=== PATIENT | female | born 1990 | race African-American/Black ===

== ENCOUNTER 2019-06-07 05:03 | Inpatient (IN) ==
--- NOTE | 2019-06-05 10:30 | HISTORY AND PHYSICAL ---
HISTORY OF PRESENT ILLNESS: The patient is a 29-year-old black female, G3, P2, at 39 and 1/7 weeks with a history of prior section x1, scheduled for repeat section. The EDC is 06/13/2019 by a 1st trimester ultrasound. The patient has also expressed a desire for permanent sterilization. care significant also for rubella status nonimmune. PAST MEDICAL HISTORY: Significant for anxiety. PAST SURGICAL HISTORY: Significant for section x1, as well as laparoscopy for a cyst on her right ovary. PAST OBSTETRICAL HISTORY: G3, P2. Spontaneous vaginal delivery x1, section x1. GYNECOLOGICAL HISTORY: Menarche at age 17. REVIEW OF SYSTEMS: Significant for asthma, presently not on medication. FAMILY HISTORY: High blood pressure and diabetes mellitus. SOCIAL HISTORY: Tobacco use, none. Alcohol use, none. MEDICATIONS: vitamins. Inhaler as needed. ALLERGIES: No known drug allergies. PHYSICAL EXAMINATION: VITAL SIGNS: Height 5 feet 6-1/2 inches, weight 282 pounds. Blood pressure 122/81, respirations 20, pulse of 82, heart rate 130s. HEENT: Pupils equal, round, reactive to light accommodation. Extraocular movements intact. Oropharynx clear. NECK: Supple. No thyromegaly. LUNGS: Clear to auscultation. HEART: Regular rate and rhythm. ABDOMEN: Gravid, nontender. EXTREMITIES: Mild lower extremity edema. DTRs 2+ bilaterally. ASSESSMENT AND PLAN: A 29-year-old G3, P2, at 39 and 1/7 weeks for repeat section and tubal ligation. Patient counseled about the risks of surgery including bleeding, infection, bowel or bladder injury. Patient counseled about the permanency of the tubal ligation, failure rate of 2 to 01/1000, as well as the availability of reversible alternatives such as IUD, control pills, patches, etc. Patient scheduled for repeat section on 06/07/2019. cc: Cortez Snell III, MD
[2019-06-07] MEDS ORDERED: PEPCID PO ONE (05:06)
[2019-06-07] MEDS ORDERED: REGLAN PO ONE (05:06)
[2019-06-07] MEDS ORDERED: LR 500 ML IV ONE (05:06)
[2019-06-07] MEDS ORDERED: CLINDAMYCIN 900 MG/D5W 900 MG/50 ML IVPB IV ONE (05:08)
[2019-06-07] MEDS ORDERED: BICITRA PO ONE (05:28)
[2019-06-07] MEDS: LR 1,000 ML IV SCH ×2 (05:40→06:26)
[2019-06-07 05:59] LABS: BASO# 0.01 X1000 (0.0-0.2); BASO% 0.1 % (0.0-0.8); EOS# 0.02 X1000 (0.0-0.7); EOS% 0.3 % (0.0-10.0); HEMATOCRIT 35.4 % (37.0-47.0); HEMOGLOBIN 11.7 g/dL (12.0-16.0); IMM GRAN# 0.01 X1000 (0.0-0.04); IMM GRAN% 0.1 % (0.0-0.5); LYMPH# 2.34 X1000 (1.2-3.4); MCH 26.8 PG (27-31); MCHC 33.1 g/dL (33-37); MCV 81.2 FL (81-99); MONO# 0.55 X1000 (0.11-0.59); MPV 10.6 FL (7.4-10.4); NEUT# 4.88 X1000 (1.4-6.5); NEUT% 62.5 % (42.2-75.2); PLT 261 X1000 (130-400); RBC 4.36 XMIL (4.2-5.4); RDW 14.8 % (11.5-14.5); WBC 7.81 X1000 (4.8-10.8)
[2019-06-07 06:27] LABS: URINE SOURCE VOIDED
[2019-06-07 06:33] LABS: BILIRUBIN URINE NEGATIVE (NEGATIVE); BLOOD URINE 1+ (NEGATIVE); CLARITY CLEAR (CLEAR); COLOR YELLOW; GLUCOSE URINE NEGATIVE (NEGATIVE); KETONE URINE NEGATIVE (NEGATIVE); LEUKOCYTES URINE 2+ (NEGATIVE); NITRITE URINE NEGATIVE (NEGATIVE); PROTEIN URINE NEGATIVE (NEGATIVE); SP GRAVITY URINE 1.005; UROBILINOGEN URINE NORMAL
[2019-06-07 06:39] LABS: UR AMPHETAMINES QUAL NONE DETECTED (NONE DETECT); UR BARBITUATES QUAL NONE DETECTED (NONE DETECT); UR BENZODIAZEPIN QUAL NONE DETECTED (NONE DETECT); UR CANNABINOIDS QUAL NONE DETECTED (NONE DETECT); UR COCAINE QUAL NONE DETECTED (NONE DETECT); UR METHADONE QUAL NONE DETECTED (NONE DETECT); UR METHAMPHETAMINE QUAL NONE DETECTED (NONE DETECT); UR OPIATES QUAL NONE DETECTED (NONE DETECT); UR OXYCODONE QUAL NONE DETECTED (NONE DETECT); UR PCP QUAL NONE DETECTED (NONE DETECT); UR PROPOXYPHENE QUAL NONE DETECTED (NONE DETECT); UR TCA QUAL NONE DETECTED (NONE DETECT)
[2019-06-07] MEDS ORDERED: EPHEDRINE ONE (06:56)
[2019-06-07] MEDS ORDERED: FENTANYL ONE ×2 (06:56→07:40)
[2019-06-07] MEDS ORDERED: PITOCIN ONE (06:56)
[2019-06-07] MEDS ORDERED: DIPRIVAN 1% ONE (07:23)
[2019-06-07] MEDS ORDERED: QUELICIN (DOSE) ONE (07:42)
[2019-06-07] MEDS ORDERED: VENTOLIN HFA ONE (07:45)
[2019-06-07] MEDS ORDERED: TORADOL ONE (07:47)
[2019-06-07] MEDS ORDERED: PHENERGAN IM PRN (08:36)
[2019-06-07] MEDS ORDERED: BOOSTRIX VACCINE IM ONE (08:36)
[2019-06-07] MEDS ORDERED: MYLICON PO PRN (08:36)
[2019-06-07] MEDS ORDERED: ATARAX PO PRN (08:36)
[2019-06-07] MEDS ORDERED: DULCOLAX PR PRN (08:36)
[2019-06-07] MEDS ORDERED: DEMEROL PO PRN ×2 (08:36)
[2019-06-07] MEDS ORDERED: AMBIEN PO PRN (08:36)
[2019-06-07] MEDS ORDERED: PITOCIN IM PRN (08:36)
[2019-06-07] MEDS ORDERED: DEMEROL IM PRN (08:36)
[2019-06-07] MEDS ORDERED: HYDROXYZINE IM PRN (08:36)
[2019-06-07] MEDS ORDERED: PITOCIN 20 UNITS/NS 20 UNITS/1,000 ML IV.SOLN IV ONE (08:36)
[2019-06-07] MEDS ORDERED: PERCOCET-5 PO PRN (08:36)
[2019-06-07] MEDS ORDERED: M-M-R II VACCINE SUBQ ONE (08:36)
[2019-06-07] MEDS ORDERED: MORPHINE IV ONE (08:38)
[2019-06-07] MEDS ORDERED: ZOFRAN ONE (08:49)
[2019-06-07] MEDS ORDERED: DURAMORPH ONE (08:49)
[2019-06-07] MEDS ORDERED: MORPHINE ONE (08:50)
[2019-06-07] MEDS ORDERED: TORADOL IV SCH (09:00)
--- NOTE | 2019-06-07 09:00 | OPERATIVE NOTE ---
PROCEDURE DATE: 06/07/2019 PREOPERATIVE DIAGNOSIS: Intrauterine at 39 and 1/7th weeks with history of section, desires permanent sterilization. POSTOPERATIVE DIAGNOSES: 1. Intrauterine at 39 and 1/7th weeks with history of section, desires permanent sterilization. 2. Operative delivery of a female , 6 pounds and 6 ounces, with Apgars of 9 and 9 at 0727 on 06/07/2019. PROCEDURE PERFORMED: Repeat low-transverse section and bilateral tubal ligation. SURGEON: Cortez Snell III, MD. MONOGRAM MAKER: Flavio. ANESTHESIA: General, Dr. Mcguire. FINDINGS: Normal-appearing uterus, normal right tube and ovary, absent left tube and ovary. COMPLICATIONS: None. ESTIMATED BLOOD LOSS: 600 mL. SPECIMENS: Right fallopian tube segment, left fimbrial remnant was removed of the left tube. DRAINS: Joseph to straight drain. COUNTS: All counts were correct x3. INDICATIONS: The patient is a 29-year-old black female, G 3, P 2, at 39 and 1/7th weeks with a history of prior section. Patient also expressed desire for permanent sterilization. The patient was counseled about the risks of surgery including bleeding, infection, bowel or bladder injury. Patient was also counseled about the permanency of tubal ligation, failure rate of 2 to 01/1000, as well as the availability of reversible alternatives such as IUD, control pills, patches, etc. DESCRIPTION OF PROCEDURE: The patient was taken to labor and delivery OR. Unable to place a spinal anesthetic and general anesthesia was then employed. The patient was prepped and draped in sterile fashion after placement of a Joseph catheter. Then general anesthesia was employed. A Pfannenstiel skin incision was made using a scalpel. This was taken down sharply to the fascial layer. A small vinnie was made in the rectus fascia. The fascial incision was extended bilaterally by curved Adam scissors. Then blunt and sharp dissection of the superior and inferior aspects of the rectus fascia was then performed. The peritoneal layer was entered bluntly. The peritoneal incision was extended superiorly and inferiorly with care taken to avoid the bladder. Bladder reflection was attempted to be dissected but difficult due to previous scarring. A transverse incision was made on the lower uterine segment. The entry into the uterine cavity showed clear fluid and vertex. Incision was extended by use of surgeon's fingers and then the head was delivered atraumatically with gentle fundal pressure. Bulb suction of nose and mouth at this time. The rest the body was delivered atraumatically, also with gentle fundal pressure. Umbilical cord was clamped twice and cut. handed to nursery nurse in attendance for delivery. Cord blood samples were obtained at this time. Placenta was then manually extracted. Uterus was exteriorized. A wet lap was placed around the uterus. A dry lap was then used to curette the uterine cavity of clots and debris x2. Then the uterine incision was closed using 0 chromic in a running, locking fashion x1. Good hemostasis was noted. Attention was then turned to the fallopian tube on the right, which was normal. The area was isolated near the isthmus. Then a hole was made in the mesosalpinx using electrocautery and 0 plain suture was then used to tie off a segment of fallopian tube. This was then excised using Metzenbaum scissors. The ends of the fallopian tube were then touched with electrocautery. Good hemostasis was noted. The right fallopian tube segment was handed off to be placed in a specimen container. Inspection of the left side revealed scarring and what appeared to be a missing left tube, although there appeared to be a possible remnant of the fimbria. This was dissected off and handed off for specimen. This was clamped using a Ruth and then Metzenbaum scissors removed it. Then a free tie of 2-0 Vicryl was used to tie off this remnant tissue. Good hemostasis was noted. The posterior cul-de-sac was then irrigated. Then the uterus was then replaced back into the abdominal cavity. Pericolic gutters were cleansed using moist lap sponges. The uterine incision and bladder reflection were inspected. Good hemostasis was noted. The peritoneal layer was then closed using 0 chromic in a running fashion x1. The rectus muscle was then reapproximated using interrupted stitches of 2-0 chromic. The fascial layer was then closed using 0 PDS in a running fashion x1. Irrigation was then applied to the subcutaneous layer and this was irrigated. Electrocautery was then used to obtain hemostasis. The justen then reapproximated the skin. The patient tolerated the procedure well and was taken to the recovery room in stable condition. cc: Cortez Snell III, MD
[2019-06-07] MEDS: MYLICON PO SCH ×4 (09:05→20:31)
[2019-06-07] MEDS ORDERED: PHENERGAN IV PRN (09:30)
[2019-06-07] MEDS ORDERED: NARCAN IV PRN (09:30)
[2019-06-07] MEDS ORDERED: SODIUM CHLORIDE 0.9% INJ PRN (09:30)
[2019-06-07] MEDS ORDERED: LR 1,000 ML IV SCH (09:30)
[2019-06-07] MEDS ORDERED: BENADRYL IV PRN (09:30)
[2019-06-07] MEDS: MORPHINE PCA IV PRN ×2 (09:42→13:52)
[2019-06-07] MEDS ORDERED: VENTOLIN HFA INH PRN (10:44)
[2019-06-07] MEDS: TORADOL IV SCH ×2 (13:28→20:31)
[2019-06-07] MEDS: PITOCIN 10 UNITS/NS 1,000 ML IV SCH (17:49)
[2019-06-07] MEDS: PERICOLACE PO SCH (20:31)
[2019-06-08] MEDS: PITOCIN 10 UNITS/NS 1,000 ML IV SCH (01:57)
[2019-06-08] MEDS: TORADOL IV SCH (01:57)
[2019-06-08 06:34] LABS: BASO# 0.01 X1000 (0.0-0.2); BASO% 0.1 % (0.0-0.8); EOS# 0.04 X1000 (0.0-0.7); EOS% 0.3 % (0.0-10.0); HEMATOCRIT 29.1 % (37.0-47.0); HEMOGLOBIN 9.3 g/dL (12.0-16.0); IMM GRAN# 0.02 X1000 (0.0-0.04); IMM GRAN% 0.2 % (0.0-0.5); LYMPH# 1.83 X1000 (1.2-3.4); LYMPH% 14.4 % (20.5-51.1); MCH 26.6 PG (27-31); MCV 83.1 FL (81-99); MONO# 1.33 X1000 (0.11-0.59); MONO% 10.5 % (1.7-9.3); MPV 10.6 FL (7.4-10.4); NEUT# 9.44 X1000 (1.4-6.5); NEUT% 74.5 % (42.2-75.2); PLT 223 X1000 (130-400); RDW 14.8 % (11.5-14.5); WBC 12.67 X1000 (4.8-10.8)
[2019-06-08] MEDS ORDERED: LR 1,000 ML IV SCH (08:37)
[2019-06-08] MEDS: FERROUS SULFATE PO SCH (08:39)
[2019-06-08] MEDS: MYLICON PO SCH ×4 (08:40→20:58)
[2019-06-08] MEDS: MOTRIN PO PRN ×2 (12:09→21:07)
[2019-06-08] MEDS: PERCOCET-10 PO PRN ×2 (12:10→18:43)
[2019-06-08] MEDS: PERICOLACE PO SCH (20:58)
[2019-06-09] MEDS: PERCOCET-10 PO PRN (03:41)
[2019-06-09] MEDS: MOTRIN PO PRN (04:58)
[2019-06-09] MEDS: MYLICON PO SCH (09:32)
[2019-06-09] MEDS: FERROUS SULFATE PO SCH (09:32)
[2019-06-09 09:52] VITALS: BP 133/85
--- NOTE | 2019-06-09 13:04 | DISCHARGE SUMMARY ---
ADMISSION DATE: 06/07/2019 DISCHARGE DATE: 06/09/2019 ADMISSION DIAGNOSIS: A 29-year-old black female, at 39-1/7 weeks with history of prior C- section for elective repeat as well as permanent sterilization. FINAL DIAGNOSIS: 29-year-old black female, at 39-1/7 weeks with history of prior for elective repeat as well as permanent sterilization with operative delivery of a female , 6 pounds 6 ounces with Apgars of 9 and 9 at 0727 on 06/07/2019, along with tubal ligation after delivery of the infant. PROCEDURE: Repeat low-transverse and bilateral tubal ligation. BRIEF HISTORY: Patient is a 29-year-old black female G3, P2, at 39-1/7 weeks with history of prior who is scheduled for repeat . Patient's EDC of 06/13/2019 was by first- trimester ultrasound. The patient also expressed desire for permanent sterilization. care is significant for a rubella status that was nonimmune. PAST MEDICAL HISTORY: Significant for anxiety. PAST SURGICAL HISTORY: x1 and laparoscopy for cyst on the right ovary. PAST OB HISTORY: G3, P2. Spontaneous vaginal delivery x1, x1. ADVERTISING STRATEGIST HISTORY: Menarche at age 17. REVIEW OF SYSTEMS: Significant for asthma, presently not on medication. FAMILY HISTORY: High blood pressure and diabetes mellitus. SOCIAL HISTORY: Tobacco use none. Alcohol use none. MEDICATIONS: vitamins and she has an inhaler at home as needed for asthma. ALLERGIES: No known drug allergies. PHYSICAL EXAMINATION: Vital Signs: Height 5 feet 6-1/2 inches, weight 282 pounds, blood pressure 122/81, respirations 20, pulse of 82, heart rate in the 130s. HEENT: Pupils equal, round, reactive to light and accommodation. Extraocular movements intact. Oropharynx clear. Neck: Supple, no thyromegaly. Lungs: Clear to auscultation. Heart: Regular rate and rhythm. Abdomen: Gravid, nontender. Extremities: Mild lower extremity edema. 2+ DTRs bilaterally. ASSESSMENT/PLAN: 29-year-old black female, , at 39-1/7 weeks with history of for elective repeat . The patient also desires permanent sterilization. The patient counseled about the risks of surgery including bleeding, infection, bowel or bladder injury. Patient also counseled about the permanency of tubal ligation, failure rate of 2 to 01/1000, as well as the availability of reversible alternatives such as IUD, control pills, patches, etc. The surgery is scheduled for 06/07/2019. HOSPITAL COURSE: The patient had operative delivery of a female , 6 pounds 6 ounces with Apgars of 9 and 9 at 0727 on 06/07/2019 and a tubal ligation was performed at the time of C- section. POSTOPERATIVE COURSE: Patient's postop hemoglobin was 9.3 and hematocrit 29.1. She became ambulatory on postop day 1 and began eating on postop day 1, and on postop day 2, she had vital signs that were stable and was afebrile and had actually had bowel activity including bowel movement. Patient expressed desire to be released from the hospital. Patient will be discharged home at this time. Patient was given instructions on pelvic rest and to follow up on 06/15/2019 for staple removal. Patient also given instructions on pelvic rest and lifting precautions for the next 6 weeks. Patient instructed to call for a temperature greater than 101, heavy vaginal bleeding, or severe abdominal pain. She was given prescriptions for Percocet 10, iron sulfate, Motrin 800 mg, and Colace 100 mg. cc: Cortez Snell III, MD
== END 2019-06-09 10:30 | disposition home or self-care (01) | DRG 785 ==
LOC: P.LD 05:03
PROVIDERS: ADMIT Obstetrics & Gynecology; ATTEND Obstetrics & Gynecology